=== PATIENT | female | born 1970 | race Caucasian/White ===

== ENCOUNTER 2017-01-25 11:29 | Emergency (ER) | payer SELFPAY ==
[~2017-01-25] VITALS: Ht 162.6 cm; Wt 84.5 kg
[~2017-01-25 11:29] MED LIST: BACTRIM DS1 TAB PO; NAPROSYN500 MG PO; RELPAX20 MG PO
[2017-01-25 12:28] LABS: HEMATOCRIT 45.1 % (37.0-47.0); HEMOGLOBIN 15.2 g/dl (12.0-16.0); IMMATURE GRANULOCYTES 0.8 % (0.0-1.0); MEAN CORPUSCULAR HGB CONC 33.7 g/L CALC (32.0-36.0); RED BLOOD COUNT 5.07 mill/uL (4.20-5.60); RED CELL DISTRI WIDTH 12.7 % (11.5-15.5)
[2017-01-25 12:37] LABS: ALBUMIN 4.1 g/dL (3.2-5.0); ALKALINE PHOSPHATASE 71 u/l (38-126); ANION GAP 15 (6-22 (CALC)); BILIRUBIN, TOTAL 0.4 mg/dL (0.0-1.4); BUN 13 mg/dL (7-17); BUN/CREATININE RATIO 19 (12-20 (CALC)); CALCIUM 9.3 mg/dL (8.4-10.2); CARBON DIOXIDE 27 mmol/l (22-30); CHLORIDE 103 mmol/l (95-108); CREATININE 0.7 mg/dL (0.5-1.0); GFR > 60 ML/MIN (>=60 (CALC)); GFR FOR AFR.AMER. > 60 ML/MIN (>=60 (CALC)); GLUCOSE 117 mg/dL (65-105); POTASSIUM 3.8 mmol/l (3.5-5.1); SGOT/AST 19 u/l (14-36); SGPT/ALT 30 u/l (9-52); SODIUM 142 mmol/l (137-146); TOTAL PROTEIN 7.7 g/dL (6.3-8.2)
[2017-01-25] MEDS ORDERED: PHENERGAN25 MG/TAB PO (14:44)
[2017-01-25] MEDS ORDERED: HYDROCO/APAP1 TA9 PO (14:44)
[2017-01-25 15:44] VITALS: BP 122/80
== END 2017-01-25 15:43 | disposition home or self-care (01) | DRG 103 ==
LOC: ED 11:29
PROVIDERS: Family Medicine
DX: G43.909 Migraine, unspecified, not intractable, without status migrainosus (principal); R11.0 Nausea

== ENCOUNTER 2017-02-07 22:34 | Emergency (ER) | payer SELFPAY ==
[~2017-02-07] VITALS: Ht 162.6 cm; Wt 84.4 kg
[~2017-02-07 22:34] MED LIST changes: +HYDROCO/APAP1 TA9 PO; +PHENERGAN25 MG/TAB PO
[2017-02-07 23:27] LABS: HEMOGLOBIN 15.7 g/dl (12.0-16.0); IMMATURE GRANULOCYTES 0.3 % (0.0-1.0); MEAN CELL VOLUME 88.6 fL CALC (80.0-100.0); MEAN CORPUSCULAR HGB 30.3 pG CALC (26.0-32.0); MEAN CORPUSCULAR HGB CONC 34.1 g/L CALC (32.0-36.0); NEUT# 10.48 thou/uL (2.00-7.15); RED BLOOD COUNT 5.19 mill/uL (4.20-5.60); RED CELL DISTRI WIDTH 12.2 % (11.5-15.5)
[2017-02-07 23:28] LABS: URINE BILIRUBIN - DIPSTICK NEGATIVE (NEGATIVE); URINE BLOOD DIPSTICK SMALL (NEGATIVE); URINE CLARITY CLEAR; URINE COLOR YELLOW; URINE GLUCOSE - DIPSTICK NEGATIVE (NEGATIVE); URINE KETONE NEGATIVE (NEGATIVE); URINE LEUK ESTERASE NEGATIVE (NEGATIVE); URINE NITRITE - DIPSTICK NEGATIVE (Negative); URINE PH 5.5 (4.5-8.0); URINE PROTEIN - DIPSTICK NEGATIVE (NEG-TRACE); URINE UROBILINOGEN - DIPSTICK 0.2 E.U./dL (0.2)
[2017-02-07 23:37] LABS: URINE SQUAMOUS EPITHELIAL CELL RARE EPI/hpf (0-FEW); URINE WBC 0-2 WBC/hpf (0-5)
[2017-02-07 23:46] LABS: AMYLASE < 30 u/l (30-110); LIPASE 26 u/l (23-300)
[2017-02-07 23:47] LABS: ALBUMIN 4.3 g/dL (3.2-5.0); ALKALINE PHOSPHATASE 71 u/l (38-126); ANION GAP 15 (6-22 (CALC)); BILIRUBIN, TOTAL 0.5 mg/dL (0.0-1.4); BUN 10 mg/dL (7-17); BUN/CREATININE RATIO 15 (12-20 (CALC)); CALCIUM 9.8 mg/dL (8.4-10.2); CARBON DIOXIDE 27 mmol/l (22-30); CHLORIDE 101 mmol/l (95-108); CREATININE 0.7 mg/dL (0.5-1.0); GFR > 60 ML/MIN (>=60 (CALC)); GFR FOR AFR.AMER. > 60 ML/MIN (>=60 (CALC)); GLUCOSE 97 mg/dL (65-105); POTASSIUM 4.6 mmol/l (3.5-5.1); SGOT/AST 16 u/l (14-36); SGPT/ALT 26 u/l (9-52); SODIUM 139 mmol/l (137-146); TOTAL PROTEIN 7.6 g/dL (6.3-8.2)
[2017-02-08 04:30] VITALS: BP 134/77
== END 2017-02-08 05:25 | disposition home or self-care (01) | DRG 392 ==
LOC: ED 22:34
PROVIDERS: Emergency Medicine
DX: R10.32 Left lower quadrant pain (principal); D72.829 Elevated white blood cell count, unspecified; F17.210 Nicotine dependence, cigarettes, uncomplicated
CPT/HCPCS: Q9967

== ENCOUNTER 2020-06-18 05:47 | Emergency (ER) | payer SELFPAY ==
[2020-06-19] MEDS ORDERED: TOPIRAMATE25 MG PO (06:12)
[2020-06-19] MEDS ORDERED: ELETRIPTAN PO (06:12)
[2020-06-19] MEDS ORDERED: MOTRIN800 MG PO (06:13)
[2020-06-19] MEDS ORDERED: BACTRIM DS1 TAB PO (06:14)
[2020-06-19] MEDS ORDERED: KEFLEX500 M1 PO (06:14)
== END 2020-06-18 06:45 | disposition home or self-care (01) | DRG 603 ==
LOC: ED 06:22
DX: L02.01 Cutaneous abscess of face (principal); B95.61 Methicillin susceptible Staphylococcus aureus infection as the cause of diseases classified elsewhere

== ENCOUNTER 2020-06-19 05:56 | Emergency (ER) | payer SELFPAY ==
[~2020-06-19] VITALS: Ht 162.6 cm; Wt 85.9 kg
[2020-06-19 06:00] VITALS: BP 143/72
[2020-06-19] MEDS ORDERED: ELETRIPTAN PO (06:12)
[2020-06-19] MEDS ORDERED: TOPIRAMATE25 MG PO (06:12)
[2020-06-19] MEDS ORDERED: MOTRIN800 MG PO (06:13)
[2020-06-19] MEDS ORDERED: BACTRIM DS1 TAB PO (06:14)
[2020-06-19] MEDS ORDERED: KEFLEX500 M1 PO (06:14)
== END 2020-06-19 06:31 | disposition home or self-care (01) | DRG 950 ==
LOC: ED 05:56
DX: S01.102D Unspecified open wound of left eyelid and periocular area, subsequent encounter (principal); L08.9 Local infection of the skin and subcutaneous tissue, unspecified; X58.XXXD Exposure to other specified factors, subsequent encounter

== ENCOUNTER 2021-01-04 12:12 | Emergency (ER) | payer SELFPAY ==
[~2021-01-04] VITALS: Ht 162.6 cm; Wt 86.8 kg
[~2021-01-04 12:12] MED LIST changes: +ELETRIPTAN PO; +KEFLEX500 M1 PO; +MOTRIN800 MG PO; +TOPIRAMATE25 MG PO
[2021-01-04] MEDS ORDERED: BACTRIM DS1 TAB PO (13:19)
[2021-01-04] MEDS ORDERED: TRAMADOL HYDROC50 M1 PO (13:19)
[2021-01-04] MEDS ORDERED: BACTROBAN TOP (13:19)
[2021-01-04] MEDS ORDERED: KEFLEX500 M1 PO (13:19)
[2021-01-04 13:56] VITALS: BP 138/87
== END 2021-01-04 13:56 | disposition home or self-care (01) | DRG 138 ==
LOC: ED 12:12
PROC: 0C90XZZ Drainage of Upper Lip, External Approach (ICD-10-PCS; principal; 2021-01-04)
DX: K13.0 Diseases of lips (principal); B95.62 Methicillin resistant Staphylococcus aureus infection as the cause of diseases classified elsewhere; Z86.14 Personal history of Methicillin resistant Staphylococcus aureus infection